=== PATIENT | male | born 1995 | race Hispanic/Latino ===

== ENCOUNTER → 2017-08-21 | Outpatient (CLI) | payer OTHER | LOC: M RAD 08:02 | DX: M76.52 Patellar tendinitis, left knee (principal) | CPT/HCPCS: 78315 ==

== ENCOUNTER 2017-11-27 08:02 | Emergency (ER) | payer OTHER | END 2017-11-27 08:53 | disposition home or self-care (01) | LOC: M ED 08:02 | DX: G89.29 Other chronic pain (principal); M25.561 Pain in right knee; M25.562 Pain in left knee | CPT/HCPCS: 99282 ==

== ENCOUNTER 2018-02-09 14:06 | Emergency (ER) | payer OTHER ==
[2018-02-09] MEDS: AZITHROMYCIN 250 MG TAB PO (14:47)
[2018-02-09] MEDS: cefTRIAXone SOD 250 MG VIAL (J0696) IM (14:47)
[2018-02-09 16:33] LABS: CHLAMYDIA DNA AMPLIFICATION NEGATIVE (NEGATIVE); GC DNA AMPLIFICATION POSITIVE (NEGATIVE)
== END 2018-02-09 14:53 | disposition home or self-care (01) ==
LOC: M ED 14:06
DX: N34.2 Other urethritis (principal); R30.0 Dysuria
CPT/HCPCS: J0696

== ENCOUNTER 2018-09-14 13:26 | Emergency (ER) | payer OTHER ==
[~2018-09-14] VITALS: Ht 177.8 cm; Wt 70.9 kg
[~2018-09-14 13:26] MED LIST: DOXY100C37 PO; NAPR-837 PO
[2018-09-14] MEDS ORDERED: ADVI100T PO (13:33)
--- NOTE | 2018-09-14 16:50 | REP ---
Chest x-ray: Two views. History: Fever and productive cough. Fatigue. . Comparison study: No comparison study . Findings: The lungs are well inflated and free of infiltrate. The pleural angles are sharp. The heart size is normal. Pulmonary vasculature is not increased. No significant bony abnormality is seen. Impression: Negative chest x-ray. Electronically Signed by Garret Arriaga MD 09/14/2018 04:42 P
[2018-09-14 17:13] LABS: INFLUENZA A AMPLIFICATION NEGATIVE (NEGATIVE); INFLUENZA B AMPLIFICATION NEGATIVE (NEGATIVE)
[2018-09-14] MEDS ORDERED: ALL10TAB28 PO (17:19)
[2018-09-14] MEDS ORDERED: AUGM875T28 PO (17:19)
[2018-09-14] MEDS ORDERED: FLUTISP (17:19)
[2018-09-14 17:33] VITALS: BP 113/62
== END 2018-09-14 17:34 | disposition home or self-care (01) ==
LOC: M ED 13:26
DX: J01.10 Acute frontal sinusitis, unspecified (principal); J00 Acute nasopharyngitis [common cold]; R05 Cough; Z79.1 Long term (current) use of non-steroidal anti-inflammatories (NSAID)